=== PATIENT | female | born 1960 ===

== ENCOUNTER 2017-09-10 19:25 | Emergency (ER) | payer SELFPAY ==
[2017-09-10 19:48] VITALS: PULSE 56; O2SAT 100; BMI 32.8
[2017-09-10 19:52] VITALS: RESP 14; TEMP 98.2
--- NOTE | 2017-09-10 20:13 | ED PDOC ---
Syncope/Near Syncope/Dizziness Time Seen by Provider: 09/10/17 20:02 Chief Complaint (Nursing): Dizziness/Lightheaded Chief Complaint (Provider): dizziness History Per: Patient, Family History/Exam Limitations: no limitations Onset/Duration Of Symptoms: Days (3), Waxing/Waning Activity At Onset Of Symptoms: Had Just Stood up Associated Symptoms Preceding Syncopal Episode: Vertigo Worse With Change In Head Position Additional Complaint(s): 56 y/o female presents with daughter for evaluation of intermittent dizziness x 3 days. Patient states dizziness only present upon changing from a sitting position to standing; describes symptoms as "everything spinning". Daughter reports one episode where patient almost fainted after standing yesterday, and one today. Associated mild posterior headache. DEnies fever, extremity numbness /weakness, vision changes, chest pain, shortness of breath, palpitations, abdominal pain, leg pain/swelling. Past Medical History Reviewed: Historical Data, Nursing Documentation, Vital Signs Vital Signs: Last Vital Signs Temp 98.2 F 09/10/17 19:49 Pulse 56 L 09/10/17 19:49 Resp 14 09/10/17 19:49 BP 161/71 H 09/10/17 19:49 Pulse Ox 100 09/10/17 19:49 - Medical History PMH: No Chronic Diseases - Surgical History Other surgeries: hysterectomy - Family History Family History: States: No Known Family Hx - Living Arrangements Living Arrangements: With Family - Home Medications Home Medications: Ambulatory Orders Medication Instructions Recorded Meclizine [Meclizine*] 25 mg PO TID PRN #21 tab 09/10/17 Nitrofurantoin Macrocrystals 100 mg PO BID #13 cap 09/10/17 [Macrobid] - Allergies Allergies/Adverse Reactions: Allergies Allergy/AdvReac Type Severity Reaction Status Date / Time No Known Allergies Allergy Verified 09/10/17 19:49 Review of Systems ROS Statement: Except As Marked, All Systems Reviewed And Found Negative Neurological: Positive for: Headache, Dizziness Physical Exam - Reviewed Nursing Documentation Reviewed: Yes Vital Signs Reviewed: Yes - Physical Exam Appears: Positive for: Well, Non-toxic, No Acute Distress Head Exam: Positive for: ATRAUMATIC, NORMAL INSPECTION, NORMOCEPHALIC Skin: Positive for: Normal Color Eye Exam: Positive for: EOMI, PERRL, Nystagmus (horizontal) ENT: Positive for: Normal ENT Inspection Cardiovascular/Chest: Positive for: Regular Rate, Rhythm Respiratory: Positive for: Normal Breath Sounds Gastrointestinal/Abdominal: Positive for: Normal Exam Back: Positive for: Normal Inspection Extremity: Positive for: Normal ROM Neurologic/Psych: Positive for: Alert, Oriented. Negative for: Motor/Sensory Deficits - Laboratory Results Result Diagrams: 09/10/17 20:37 09/10/17 20:37 - ECG ECG: Positive for: Viewed By Me (reviewed by ED attending) ECG Rhythm: Positive for: Sinus Bradycardia (53bpm) O2 Sat by Pulse Oximetry: 100 - Progress ED Course And Treament: labs, ekg, CT head, IV fluids, PO meclizine EXAM: CT Head Without Intravenous Contrast EXAM DATE/TIME: 09/10/2017 8:54 PM CLINICAL HISTORY: 56 years old, female; Signs and symptoms; Dizziness TECHNIQUE: Axial computed tomography images of the head/brain without intravenous contrast. All CT scans at this facility use one or more dose reduction techniques, viz.: automated exposure control; ma/kV adjustment per patient size (including targeted exams where dose is matched to indication; i.e. head); or iterative reconstruction technique. COMPARISON: No relevant prior studies available. FINDINGS: Brain: Minimal 6 mm focus of mild density in the posterior inferior and medial left frontal lobe which is probably calcification. Ventricles: Normal. No ventriculomegaly. Bones/joints: Normal. No acute fracture. Sinuses: Normal as visualized. No acute sinusitis. Mastoid air cells: Normal as visualized. No mastoid effusion. Soft tissues: Normal. IMPRESSION: 1. 6 mm area of faint density in the posterior inferior and medial left frontal lobe white matter which is probably calcification. Minimal petechial hemorrhage is not excluded. Comparison to any prior studies or followup may be of benefit. 2. Otherwise negative noncontrast head CT. Case discussed with Dr. Bruno, who does not believe CT findings to be related to symptoms, agrees with plan for discharge On re-eval, patient states she is feeling better. Ambulating steady gait; no longer orthostatic Patient/daughter educated on findings, discharged with rx Meclizine, Macrobid Advised follow up PMD 2-3 days. Return precautions given Disposition - Clinical Impression Clinical Impression: UTI (urinary tract infection), Orthostatic dizziness - Patient ED Disposition Is Patient to be Admitted: No Counseled Patient/Family Regarding: Studies Performed, Diagnosis, Need For Followup, Rx Given - Disposition Disposition: Routine/Home Disposition Time: 23:46 Condition: IMPROVED Prescriptions: Meclizine [Meclizine*] 25 mg PO TID PRN #21 tab PRN Reason: Dizziness Nitrofurantoin Macrocrystals [Macrobid] 100 mg PO BID #13 cap Instructions: Dizziness, Nonvertigo, (DC), Orthostatic Hypotension, Urinary Tract Infections in Adults Forms: [facility] (Kittitian) Print Language: TELUGU
[2017-09-10] MEDS: Sodium Chloride 0.9% 1,000 ML IV STA ×2 (20:38→22:20)
[2017-09-10 21:05] LABS: BASO # 0.1 K/uL (0.0-0.2); EOS # 0.2 K/uL (0.0-0.7); EOS % 2.5 % (0.0-4.0); HEMOGLOBIN 14.7 g/dL (12.0-16.0); LYMPH # 2.6 K/uL (1.0-4.3); LYMPH % 35.8 % (20.0-40.0); MEAN CELL VOLUME 87.6 fl (81.0-99.0); MEAN CORPUSCULAR HEMOGLOBIN 29.7 pg (27.0-31.0); MEAN CORPUSCULAR HGB CONC 33.8 g/dL (33.0-37.0); MEAN PLATELET VOLUME 9.4 fl (7.2-11.7); MONO # 0.6 K/uL (0.0-0.8); MONO % 8.4 % (0.0-10.0); NEUT # 3.7 K/uL (1.8-7.0); NEUT % 52.3 % (50.0-75.0); NRBC % 0.1 % (0.0-0.0); RBC 4.95 Mil/uL (3.80-5.20); RED CELL DISTRIBUTION WIDTH 13.6 % (11.5-14.5); WHITE BLOOD COUNT 7.1 K/uL (4.8-10.8)
[2017-09-10 21:09] LABS: ALB/GLOB RATIO 1.2 (1.0-2.1); ALBUMIN 4.8 g/dL (3.5-5.0); ALT/SGPT 41 U/L (9-52); AST/SGOT 43 U/L (14-36); BLOOD UREA NITROGEN 13 mg/dl (7-17); CALCIUM 10.3 mg/dL (8.4-10.2); GFR AFRICAN-AMERICAN > 60; GFR NON-AFRICAN AMERICAN > 60
[2017-09-10 22:17] VITALS: BP 154/76
[2017-09-10 22:36] LABS: SQUAMOUS EPITHIAL 2 /hpf (0-5); URINE BACTERIA RARE (<OCC); URINE BILIRUBIN NEGATIVE (NEGATIVE); URINE BLOOD NEGATIVE (NEGATIVE); URINE CLARITY CLEAR (Clear); URINE COLOR STRAW (YELLOW); URINE GLUCOSE (UA) NEG (Normal); URINE LEUKOCYTE ESTERASE MOD Leu/uL (Negative); URINE PROTEIN NEGATIVE (NEGATIVE); URINE UROBILINOGEN 0.2-1.0 mg/dL (0.2-1.0)
--- NOTE | 2017-09-11 08:46 | CT ---
PROCEDURE: CT HEAD WITHOUT CONTRAST. HISTORY: Dizziness COMPARISON: None available. TECHNIQUE: Axial computed tomography images were obtained through the head/brain without intravenous contrast. Radiation dose: Total exam DLP = 800.79 mGy-cm. This CT exam was performed using one or more of the following dose reduction techniques: Automated exposure control, adjustment of the mA and/or kV according to patient size, and/or use of iterative reconstruction technique. FINDINGS: HEMORRHAGE: No intracranial hemorrhage. BRAIN: There is a 5 mm high attenuation focus in the left inferior medial frontal lobe (series 4, image 15). There is no mass, mass effect or abnormal extra-axial fluid collection. There is no territorial infarction. VENTRICLES: The ventricles are normal in size, shape and configuration. CALVARIUM: There is no calvarial fracture or extracranial soft tissue swelling. PARANASAL SINUSES: Predominantly clear. MASTOID AIR CELLS: Predominantly clear. OTHER FINDINGS: None. IMPRESSION: 6 mm focus of increased density in the left inferomedial frontal lobe is concerning for petechial hemorrhage. Follow-up CT scan is recommended for stability. A preliminary report was provided by [facility].
--- NOTE | 2017-09-12 10:57 | CARD ---
APPROVED REPORT EKG Measurement Heart [id number] <Conclusion> Sinus bradycardia with sinus arrhythmia Otherwise normal ECG
== END 2017-09-10 23:59 | disposition home or self-care (01) ==
LOC: EDSEX 19:25 → H.ER 19:25
DX: R42 Dizziness and giddiness (principal); N39.0 Urinary tract infection, site not specified; Z90.710 Acquired absence of both cervix and uterus
CPT/HCPCS: 70450; 80053; 81003; 81025; 82948; 85025; 87086; 93005; 99285; J7030